=== PATIENT | male | born 1980 | race African-American/Black ===

== ENCOUNTER 2022-09-27 10:04 | Emergency (ER) | payer MEDICAID, OTHER ==
[~2022-09-27] VITALS: Ht 182.9 cm; Wt 73.0 kg
[2022-09-27 10:06] VITALS: BP 134/78
[2022-09-27] MEDS ORDERED: ONDANSETRON 4MG ODT PO ONE (11:00)
[2022-09-27] MEDS ORDERED: LORAZEPAM 1MG TABLET PO ONE (11:00)
== END 2022-09-27 11:54 | disposition home or self-care (01) ==
LOC: ER 10:04
DX: F10.139 Alcohol abuse with withdrawal, unspecified (principal); G62.9 Polyneuropathy, unspecified; Y90.9 Presence of alcohol in blood, level not specified; Z88.8 Allergy status to other drugs, medicaments and biological substances
CPT/HCPCS: 99283; Q0162